=== PATIENT | male | born 1970 | race Asian ===

== ENCOUNTER 2018-02-07 17:33 | Emergency (ER) | payer MEDICAID, OTHER ==
[~2018-02-07] VITALS: Ht 167.6 cm; Wt 89.8 kg
[2018-02-07 17:50] VITALS: BP 149/118
[2018-02-07] MEDS ORDERED: TETANUS-DIPTH-ACEL PERTUSSIS 0.5ML SYRG IM ONE (19:30)
[2018-02-07] MEDS ORDERED: LIDOCAINE W/ EPINEPHRINE 2% INJ 20ML VIAL IJ ONE (20:30)
[2018-02-07] MEDS ORDERED: LIDOCAINE W/ EPINEPHRINE 1% 20ML VIAL ID ONE (20:30)
[2018-02-07] MEDS ORDERED: LIDOCAINE 1% (LOCAL ANESTH.) PF 5ml SDV ID ONE (20:30)
[2018-02-07] MEDS ORDERED: NEOMYCIN-BACITRACIN-POLYM UNITDOSE PKG TOP OINT TOP ONE (20:30)
[2018-02-07] MEDS ORDERED: ceFAZolin 1GM/50ML 50 ML IV ONE (21:30)
== END 2018-02-07 22:00 | disposition home or self-care (01) ==
LOC: ER 17:43
DX: S51.812A Laceration without foreign body of left forearm, initial encounter (principal); W25.XXXA Contact with sharp glass, initial encounter; Y93.89 Activity, other specified; Y92.89 Other specified places as the place of occurrence of the external cause; Y99.8 Other external cause status
CPT/HCPCS: 12034; 73090; 90471; 90715; 96365; 99284; J0690; J7030

== ENCOUNTER 2018-07-06 13:53 | Inpatient (IN) | payer MEDICAID ==
[~2018-07-06] VITALS: Ht 167.6 cm; Wt 89.0 kg
[2018-07-06 14:39] LABS: Basophils # (auto) 0.1 uL; Basophils % (auto) 0.8 % (0.0-2.0); Eosinophils # (auto) 0.3 uL; Eosinophils % (auto) 4.5 % (0.0-7.0); Hematocrit 43.3 % (41.0-53.0); Hemoglobin 14.7 g/dL (13.5-17.5); Mean Corpuscular Hemoglobin 28.9 pg (28.0-32.0); Mean Corpuscular Hgb Conc. 34.1 g/dL (32.0-36.0); Mean Corpuscular Volume 84.7 fL (80.0-100.0); Monocytes # (auto) 0.8 uL; Monocytes % (auto) 10.2 % (0.0-12.0); Neutrophils # (auto) 4.4 uL; Neutrophils % (auto) 58.5 % (37.0-80.0); Nucleated Red Blood Cells % 0.1 %; Platelet Count (auto) 303 10^3/uL (140-450); Red Blood Cells 5.11 10^6/uL (4.5-5.90); Red Cell Distribution Width 13.9 % (11.8-14.3); White Blood Cell 7.5 10^3/uL (4.4-10.8)
[2018-07-06 14:56] LABS: Albumin 4.1 g/dL (3.4-5.0); Calcium 8.7 mg/dL (8.5-10.1)
[2018-07-06 15:01] LABS: BUN/Creatinine Ratio 14.3; Bilirubin, Total 0.5 mg/dL (0.2-1.0); Total Protein 7.8 g/dL (6.4-8.2)
[2018-07-06] MEDS ORDERED: MORPHINE SULFATE 4 MG/ML SYR/VIAL IV ONE (19:30)
[2018-07-06] MEDS ORDERED: ONDANSETRON HCL 4 MG/2 ML VIAL IV ONE (19:30)
[2018-07-06] MEDS ORDERED: POTASSIUM CHL 20 Meq TABLET PO ONE (20:00)
[2018-07-06] MEDS ORDERED: MORPHINE SULFATE 4 MG/ML SYR/VIAL IV PRN ×2 (20:15)
[2018-07-06] MEDS ORDERED: HYDROcodone-ACET 5/325MG TAB PO PRN (20:15)
[2018-07-06] MEDS ORDERED: ASPirin-EC 81 mg tab PO ONE (20:15)
[2018-07-06] MEDS ORDERED: NITROGLYCERIN 0.4 MG SL TAB SL PRN (20:15)
[2018-07-06] MEDS ORDERED: ACETAMINOPHEN 500 MG TAB PO PRN (20:15)
[2018-07-06] MEDS ORDERED: ONDANSETRON HCL 4 MG/2 ML VIAL IV PRN (20:15)
[2018-07-06] MEDS ORDERED: NITROGLYCERIN 50MG/250ML 250 ML IV SCH (20:15)
[2018-07-06] MEDS ORDERED: ENOXAPARIN SOD 100 MG/1 ML SYRINGE SC ONE (20:15)
[2018-07-06 20:41] LABS: Cholesterol 150 mg/dL (< 200); Triglycerides 111 mg/dL (< 150)
[2018-07-06 20:43] LABS: HDL Cholesterol 34 mg/dL (40-59); LDL Cholesterol 108 mg/dL (< 100)
[2018-07-06 21:46] LABS: Partial Thromboplastin Time 32.3 sec (23.78-33.04); Prothrombin Time 10.7 sec (9.27-12.13)
[2018-07-06] MEDS: ATORVASTATIN 20 MG TAB PO SCH (21:47)
[2018-07-06] MEDS: METOPROLOL TARTRATE 25 MG TAB PO SCH (21:48)
[2018-07-06] MEDS ORDERED: CLOPIDOGREL BISULFATE 75 MG TAB PO ONE (22:30)
[2018-07-07 03:50] LABS: BUN/Creatinine Ratio 14.5; Calcium 8.3 mg/dL (8.5-10.1)
[2018-07-07 05:54] LABS: Basophils # (auto) 0.1 uL; Basophils % (auto) 1.2 % (0.0-2.0); Eosinophils # (auto) 0.3 uL; Eosinophils % (auto) 4.1 % (0.0-7.0); Hematocrit 43.7 % (41.0-53.0); Lymphocytes # (auto) 1.6 uL; Lymphocytes % (auto) 19.4 % (10.0-50.0); Mean Corpuscular Hemoglobin 29.3 pg (28.0-32.0); Mean Corpuscular Hgb Conc. 34.3 g/dL (32.0-36.0); Mean Corpuscular Volume 85.5 fL (80.0-100.0); Monocytes # (auto) 0.8 uL; Monocytes % (auto) 9.5 % (0.0-12.0); Neutrophils # (auto) 5.5 uL; Neutrophils % (auto) 65.8 % (37.0-80.0); Nucleated Red Blood Cells % 0.1 %; Platelet Count (auto) 315 10^3/uL (140-450); Red Blood Cells 5.11 10^6/uL (4.5-5.90); Red Cell Distribution Width 14.1 % (11.8-14.3); White Blood Cell 8.4 10^3/uL (4.4-10.8)
[2018-07-07 06:06] LABS: Partial Thromboplastin Time 33.3 sec (23.78-33.04); Prothrombin Time 10.7 sec (9.27-12.13)
[2018-07-07] MEDS ORDERED: MEPERIDINE HCL (25 MG/ML) 1ML VIAL IV ONE (07:30)
[2018-07-07] MEDS ORDERED: LIDOCAINE 2%HCL (LOCAL ANESTH.) INJ 20ML MDV ONE (09:20)
[2018-07-07] MEDS ORDERED: IODIXANOL 320MG/ML 100ML BTL IV ONE (09:20)
[2018-07-07] MEDS ORDERED: MIDAZOLAM HCL 1MG/1ML-2 ML VIAL ONE (09:21)
[2018-07-07] MEDS ORDERED: fentaNYL CITRATE 100 MCG/2 ML VL ONE (09:21)
[2018-07-07] MEDS ORDERED: ANGIOMAX 250 MG VIAL IV ONE (09:21)
[2018-07-07] MEDS ORDERED: SODIUM CHL 0.9% 50 ML ONE (09:21)
[2018-07-07] MEDS ORDERED: CLOPIDOGREL BISULFATE 75 MG TAB ONE (09:57)
[2018-07-07] MEDS ORDERED: ASPirin 81 mg TAB ONE (09:58)
[2018-07-07] MEDS: BENAZEPRIL HCL 10 MG TAB PO SCH (10:00)
[2018-07-07] MEDS: METOPROLOL TARTRATE 25 MG TAB PO SCH ×2 (10:00→21:39)
[2018-07-07] MEDS ORDERED: ASPirin-EC 81 mg tab PO SCH (10:00)
[2018-07-07] MEDS ORDERED: cloNIDine HCL 0.1 MG TAB PO PRN (12:45)
[2018-07-07 15:30] VITALS: BP 122/87
--- NOTE | 2018-07-07 15:30 | NUR ---
Telemetry admit from ER ROSCOE DUPREE admitted to Telemetry unit after SBAR received. Patient oriented to LORELEI GREGORY, primary RN, unit, room, bed, and unit policies regarding patient care and visiting hours. Patient now on continuous telemetry monitoring, tele box # [id number] and telemetry reading on arrival to unit is . Patient placed on bedside oxygen, weighed by bed scale and encouraged to call if they need something. All questions and concerns addressed, patient verbalized understanding.
[2018-07-07] MEDS ORDERED: CLOP75TA28 PO (17:05)
[2018-07-07] MEDS ORDERED: ASPI-231 PO (17:06)
--- NOTE | 2018-07-07 17:08 | NUR ---
Dr. Allan Salinas at bedside.
--- NOTE | 2018-07-07 17:09 | NUR ---
Per Dr. Barrett , patient clears to go home tomorrow with ASA 81 mg and plavix [address] Allan Salinas made aware.
--- NOTE | 2018-07-07 19:40 | NUR ---
OPENING NOTE REPORT RECEIVED FROM DAY SHIFT RN PT IS S/P LEFT HEART CATH. NO S/S OF DISTRESS NOTED, DENIES ANY CHEST PAIN. INCISION SITE TO RIGHT GROIN IS C/D/I. POC DISCUSSED. PT MADE AWARE OF TENTATIVE DISCHARGE ORDER FOR TOMORROW. WILL MONITOR THROUGHOUT NIGHT. CALL LIGHT WITHIN REACH.
[2018-07-07] MEDS: ATORVASTATIN 20 MG TAB PO SCH (21:39)
[2018-07-07 22:00] VITALS: BP 122/54
[2018-07-08 05:14] VITALS: BP 120/70
--- NOTE | 2018-07-08 06:50 | NUR ---
IV removal TO LEFT AC. PT C/O PAIN IV DC'd with clean sterile technique, catheter fully intact. Pressure dressing applied to site. Patient tolerated well.
--- NOTE | 2018-07-08 07:26 | NUR ---
CLOSING NOTE REPORT ENDORSED TO DAY SHIFT RN PATIENT IS A/OX4 WATCHING TV IN BED. DRESSING TO RIGHT GROIN C/D/I. PT STABLE. NO INCIDENT DURING NIGHT CALL LIGHT WITHIN REACH
--- NOTE | 2018-07-08 08:40 | NUR ---
Received cardiac clearance from Dr. Barrett. Patient is to follow-up with MD within 1 week of discharge. MD aware echocardiogram is not yet completed. Per MD this can be completed as outpatient.
[2018-07-08 09:00] VITALS: BP 123/77
--- NOTE | 2018-07-08 09:17 | NUR ---
Called in prescriptions to patient's preferred pharmacy. Per pharmacist, Rx will be available for pick-up today.
--- NOTE | 2018-07-08 09:37 | NUR ---
Per pharmacy, prescriptions are covered with no co-pay.
[2018-07-08] MEDS ORDERED: CLOPIDOGREL BISULFATE 75 MG TAB PO SCH (10:00)
[2018-07-08] MEDS: METOPROLOL TARTRATE 25 MG TAB PO SCH (10:00)
[2018-07-08] MEDS ORDERED: ASPirin 81 mg TAB PO SCH (10:00)
[2018-07-08] MEDS ORDERED: CLOPIDOGREL BISULFATE 75 MG TAB PO ONE (10:00)
[2018-07-08] MEDS: BENAZEPRIL HCL 10 MG TAB PO SCH (10:00)
[2018-07-08 11:39] VITALS: BP 132/99
--- NOTE | 2018-07-08 12:26 | NUR ---
Discharge instructions given as ordered. Encourage to follow up with PMD as instructed. All questions and concerns addressed. Patient verbalized understanding. Medication reconciliation form completed and copy given to patient. No home medications in pharmacy. IV removed with catheter intact, pressure dressing applied. Telemetry unit returned to [facility]. Patient ambulated to vehicle by request with all personal belongings, accompanied by staff and family member. No distress noted at time of departure.
== END 2018-07-08 12:24 | disposition home or self-care (01) | DRG 174 ==
LOC: EDBD 13:53 → ER 13:53 → TELE 19:55 → TELE-CENTR 07-07 16:07
PROVIDERS: ADMIT Nurse Practitioner Acute Care; ATTEND Internal Medicine
PROC: 4A023N7 Measurement of Cardiac Sampling and Pressure, Left Heart, Percutaneous Approach (ICD-10-PCS; principal; 2018-07-07)
PROC: 027034Z Dilation of Coronary Artery, One Artery with Drug-eluting Intraluminal Device, Percutaneous Approach (ICD-10-PCS; 2018-07-07)
PROC: B2151ZZ Fluoroscopy of Left Heart using Low Osmolar Contrast (ICD-10-PCS; 2018-07-07)
PROC: B2111ZZ Fluoroscopy of Multiple Coronary Arteries using Low Osmolar Contrast (ICD-10-PCS; 2018-07-07)
DX: I21.4 Non-ST elevation (NSTEMI) myocardial infarction (principal); E87.6 Hypokalemia; I10 Essential (primary) hypertension; Z86.73 Personal history of transient ischemic attack (TIA), and cerebral infarction without residual deficits; Z95.5 Presence of coronary angioplasty implant and graft; Z87.891 Personal history of nicotine dependence; Z82.49 Family history of ischemic heart disease and other diseases of the circulatory system; Z79.01 Long term (current) use of anticoagulants; Z79.02 Long term (current) use of antithrombotics/antiplatelets
CPT/HCPCS: 36415; 71045; 71046; 80048; 80053; 80061; 83735; 83880; 84443; 84484; 85025; 85610; 85730; 86850; 86900; 86901; 93005; 94761; 96365; 96366; 96372; 96375; 99152; A6257; C1874; G0378; J2250; J2405; Q9967

== ENCOUNTER 2019-07-19 02:19 | Emergency (ER) | payer SELFPAY ==
[~2019-07-19] VITALS: Ht 167.6 cm; Wt 95.3 kg
[~2019-07-19 02:19] MED LIST: ASPI-231 PO; CLOP75TA28 PO
[2019-07-19 04:11] VITALS: BP 143/99
[2019-07-19] MEDS ORDERED: ALBUTEROL SULF 2.5 MG/0.5ML(0.5%) NEB SOLN NEB ONE (04:15)
[2019-07-19] MEDS ORDERED: IPRATROPIUM BROM 0.5 MG/2.5ML INH SOL NEB ONE (04:15)
== END 2019-07-19 04:54 | disposition home or self-care (01) ==
LOC: ER 02:23
DX: J20.9 Acute bronchitis, unspecified (principal); I25.2 Old myocardial infarction; I10 Essential (primary) hypertension
CPT/HCPCS: 71046; 94640; 99283; J7611; J7644

== ENCOUNTER 2021-08-30 14:02 | Emergency (ER) | payer MEDICAID ==
[~2021-08-30] VITALS: Ht 170.2 cm; Wt 95.3 kg
[~2021-08-30 14:02] MED LIST changes: -ASPI-231 PO; +ASPI1TAB20 PO
[2021-08-30 14:26] VITALS: BP 160/90
== END 2021-08-30 15:11 | disposition home or self-care (01) ==
LOC: ER 14:02
DX: S46.212A Strain of muscle, fascia and tendon of other parts of biceps, left arm, initial encounter (principal); S46.211A Strain of muscle, fascia and tendon of other parts of biceps, right arm, initial encounter; I10 Essential (primary) hypertension; I25.2 Old myocardial infarction; Z79.82 Long term (current) use of aspirin; Z79.01 Long term (current) use of anticoagulants; X58.XXXA Exposure to other specified factors, initial encounter; Y93.89 Activity, other specified; Y92.89 Other specified places as the place of occurrence of the external cause; Y99.8 Other external cause status